=== PATIENT | male | born 1965 | race Caucasian/White ===

== ENCOUNTER 2020-04-07 12:57 | Inpatient (IN) | payer BC ==
[~2020-04-07] VITALS: Ht 188 cm; Wt 111.0 kg
[2020-04-07] VITALS (9 sets, daily range): BP systolic 109–177; BP diastolic 62–102
[2020-04-07 13:37] LABS: BASO % 0.3 % (0.0-1.0); EOS # 0.1 10*3/uL (0.0-0.4); EOS % 1.3 % (1.0-4.0); HEMATOCRIT 43.2 % (42.0-52.0); LYMPH # 1.6 10*3/uL (1.3-4.4); LYMPH % 25.7 % (27.0-41.0); MEAN CELL VOLUME 79.6 fl (80.0-94.0); MEAN CORPUSCULAR HGB 24.3 pg (27.0-31.0); MEAN CORPUSCULAR HGB CONC 30.6 g/dl (33.0-37.0); MEAN PLATELET VOLUME 8.5 fl (9.6-12.3); MONO # 0.6 10*3/uL (0.1-1.0); MONO % 9.9 % (3.0-9.0); NEUT # 3.9 10*3/uL (2.3-7.9); NEUT % 62.5 % (47.0-73.0); PLATELET COUNT AUTOMATED 267 10*3/uL (130-400); RED BLOOD COUNT 5.43 10*6/uL (4.50-5.90); WHITE BLOOD COUNT 6.3 10*3/uL (4.8-10.8)
[2020-04-07 13:51] LABS: ACETAMINOPHEN (TYLENOL) < 5.0 ug/ml (10-30); ALBUMIN 3.5 gm/dl (3.1-4.5); ALKALINE PHOSPHATASE 89 U/L (45-117); BUN 11 mg/dl (7-24); CHLORIDE 101 mmol/L (98-107); CREATININE 1.18 mg/dL (0.70-1.30); SGOT/AST 50 IU/L (3-35); SGPT/ALT 41 U/L (12-78); SODIUM 135 mmol/L (136-145); TOTAL PROTEIN 7.9 gm/dL (6.4-8.2); TROPONIN I < 0.015 ng/ml (<0.045)
[2020-04-07 14:30] LABS: BILIRUBIN Negative (Negative); BLOOD Negative (Negative); CLARITY Clear (Clear); COLOR Yellow (Yellow); GLUCOSE Negative (Negative); KETONE Negative (Negative); LEUKO ESTERASE Negative (Negative); NITRITE Negative (Negative); PH 5.5 (4.5-8.0); UROBILINOGEN 0.2 E.U./dl (0.0-1.0)
[2020-04-07 14:36] LABS: BACTERIA TRACE; EPITHELIAL CELLS 0-2; RBC 0-2 rbc/hpf (0-2); WBC 0-2 wbc/hpf (0-5)
[2020-04-07 14:38] LABS: URINE AMPHETAMINES < 1000 (1000ng/ml); URINE BARBITURATES < 200 (200ng/ml); URINE BENZODIAZEPINES < 200 (200ng/ml); URINE CANNABINOIDS (THC) < 50 (50ng/ml); URINE COCAINE < 300 (300ng/ml); URINE METHADONE < 300 (300ng/ml); URINE OPIATES < 300 (300ng/ml); URINE PHENCYCLIDINE < 25 (25ng/ml)
[2020-04-07] MEDS ORDERED: LIPITOR40 MG PO (14:38)
[2020-04-07] MEDS ORDERED: REMERON30 M1 PO (14:38)
[2020-04-07] MEDS ORDERED: METOPROLOL SUCC25 M2 PO (14:39)
[2020-04-07] MEDS ORDERED: HYDROCHLOROTHIA25 M1 PO (14:40)
[2020-04-07] MEDS ORDERED: LOSARTAN POTAS100 MG PO (14:41)
[2020-04-07] MEDS ORDERED: PROTONIX TR40 M1 PO (14:41)
--- NOTE | 2020-04-07 14:47 | NUR ---
PATIENT MEETS [facility]. [place] STAFF WILL FOLLOW UP WITH PATIENT CONCERNING HIS AFTERCARE PLAN. JOSE TAPIA B.A. CLOTH DESIGNER
--- NOTE | 2020-04-07 16:25 | NUR ---
JOSE IS IN PATIENT ROOM AT THIS TIME.
--- NOTE | 2020-04-07 16:37 | NUR ---
PATIENT RESTING AT THIS TIME. NO COMPLAINTS.
--- NOTE | 2020-04-07 16:39 | NUR ---
[place] STAFF IN TO SEE PATIENT. PATIENT WANTS TO FOLLOW UP WITH [facility] FOR HIS AFTERCARE PLAN. JOSE TAPIA B.A. VACUUM CLEANER OPERATOR
--- NOTE | 2020-04-07 17:00 | NUR ---
PATIENT AMBULATORY TO THE BATHROOM WITH NO DIFFICULTIES.
[2020-04-07] MEDS ORDERED: HYDR25T PO (18:39)
--- NOTE | 2020-04-07 18:39 | NUR ---
PATIENT STATES THAT HE IS STILL HUNGRY. PROVIDED A BOXED LUNCH.
--- NOTE | 2020-04-07 19:40 | NUR ---
PATIENT REQUESTING SOMETHING "FOR HIS NERVES". STATES THAT HE IS FEELING VERY "ON EDGE". PATIENT WILL BE MEDICATED WITH PRN ATIVAN. WILL CONTINUE TO MONITOR PT.
--- NOTE | 2020-04-07 20:00 | NUR ---
PATIENT STATES THAT HE IS FEELING MUCH BETTER AT THIS TIME. WILL CONTINUE TO MONITOR PT. CALL LIGHT IN REACH. PWD. RESP EASY AND NON LABORED.
--- NOTE | 2020-04-07 20:19 | NUR ---
PATIENT AMBULATORY TO THE BATHROOM WITH NO DIFFICULTIES.
--- NOTE | 2020-04-07 21:00 | NUR ---
PATIENT RESTING AT THIS TIME WITH EYES CLOSED. EASILY AROUSABLE. RESP EASY AND NON LABORED. NO COMPLAINTS AT THIS TIME.
--- NOTE | 2020-04-07 21:19 | NUR ---
PATIENT PROVIDED AN IMPATIENT BED DUE TO BEING AN ED HOLD.
--- NOTE | 2020-04-07 22:00 | NUR ---
PT REQUESTING ATIVAN TO HELP SLEEP AT THIS TIME. PT INFORMED THAT NEXT SCHEDULED DOSE IS AT 0000. WILL CONTINUE TO MONITOR.
--- NOTE | 2020-04-08 00:10 | NUR ---
ROBAXIN AND TRAZADONE BECOMING EFFECTIVE FOR MUSCLE CRAMPS AND INSOMNIA.
--- NOTE | 2020-04-08 00:15 | NUR ---
PT GIVEN ATIVAN AT THIS TIME. PT STATES HE IS HAVING A HARD TIME SLEEPING AT THIS TIME. WILL CONTINUE TO MONITOR.
--- NOTE | 2020-04-08 03:00 | NUR ---
PT C/O INABILITY TO SLEEP AT THIS TIME. STATES HE FEELS LIKE HE IS HAVING MUSCLE COTRACTIONS. NURSE [employer] SERVICE SALES REPRESENTATIVE CONTACTED AND TRAZADONE 50 MG AT THIS TIME. WILL CONTINUE TO MONITOR.
--- NOTE | 2020-04-08 04:00 | NUR ---
PT REQUESTING MORE MEDICATION TO HELP HIM CALM. ATIVAN BEING GIVEN AT THIS TIME.
[2020-04-08 04:51] VITALS: BP 182/113
--- NOTE | 2020-04-08 04:56 | NUR ---
DR BLOCK CONTACTED AT THIS TIME FOR PT C/O RESTLESSNESS. ORDERS FOR PT TO BE GIVEN 1 MG IV ATIVAN AT THIS TIME. WILL CONTINUE TO MONITOR.
[2020-04-08 07:41] VITALS: BP 165/83
--- NOTE | 2020-04-08 07:42 | NUR ---
PATIENT RESTING IN BED. NO S/S OF DISTRESS. VSS.
--- NOTE | 2020-04-08 11:13 | NUR ---
[facility] STAFF SENT PATIENT'S ASSESSMENT TO [facility]. [facility] STAFF WILL FOLLOW UP WITH PATIENT CONCERNING HIS AFTERCARE PLAN. JOSE TAPIA B.A. TRANSACTIONAL ATTORNEY
--- NOTE | 2020-04-08 12:00 | NUR ---
Pt arrived to floor from being adm in ER and ER hold. Assessment completed. See interventions. Home meds with pt taken and sent to pharmacy.
--- NOTE | 2020-04-08 14:23 | NUR ---
Pt had question regarding getting paperwork filled out for paid leave from work. I called [employer] and message was left for them regarding.
--- NOTE | 2020-04-08 15:22 | NUR ---
[place] STAFF IN TO SEE PATIENT. PATIENT IS WANTING OUTPATIENT TREATMENT AT [facility]. PATIENT HAS AN APPOINTMENT WITH THEM ON SATURDAY, March AT NOON. PATIENT REPORTS THAT HE TRANSPORTATION HOME POST DISCHARGE. [place] STAFF PROVIDED PATIENT WITH LETTER STATING THAT HE WAS IN [facility] THAT HE REQUESTED. PATIENT AGREES AND UNDERSTANDS HIS AFTERCARE PLAN. JOSE TAPIA B.A. FRAME OPERATOR
--- NOTE | 2020-04-08 15:49 | NUR ---
Notified by park warden that ekg monitor called her to notify the floor that pt is still off monitor. I had not received a call to say pt was off monitor.
--- NOTE | 2020-04-08 15:55 | NUR ---
Medicated with robaxin and vistaril per prn order for complaints of muscle aches and anxiety.
[2020-04-08 16:00] VITALS: BP 143/91
--- NOTE | 2020-04-08 16:45 | NUR ---
States that medication given earlier was effective.
--- NOTE | 2020-04-08 18:09 | NUR ---
Nicoderm patch applied to left shoulder per pt request and prn order. Pt states he smokes 1 ppd.
[2020-04-08 20:00] VITALS: BP 114/78
--- NOTE | 2020-04-08 20:06 | NUR ---
IV ATIVAN GIVEN PER ORDER FOR D/T TREMORS AND PO ATIVAN NOT DUE YET. MOTRIN GIVEN PER ORDER FOR BACK PAIN RATED "5".
--- NOTE | 2020-04-08 21:00 | NUR ---
MOTRIN AND IV ATIVAN EFFECTIVE FOR PAIN AND ANXIETY.
--- NOTE | 2020-04-08 23:16 | NUR ---
ROBAXIN GIVEN PER ORDER FOR MUSCLE/BACK PAIN SEE MAR.
--- NOTE | 2020-04-08 23:24 | NUR ---
TRAZADONE GIVEN PER ORDER FOR INSOMNIA. SEE MAR.
[2020-04-09] VITALS: BP 155/99
--- NOTE | 2020-04-09 01:48 | NUR ---
VISTARIL GIVEN PER ORDER FOR FOR ANXIETY. SEE MAR.
--- NOTE | 2020-04-09 02:40 | NUR ---
CALLED DR. BLOCK AND NOTIFIED HIM OF PATIENT UNABLE TO SLEEP AND HAVING TREMORS AND ALL MEDICATIONS HAVE BEEN GIVEN FOR THIS WITH NO RESULTS. ORDER RECEIVED TO GO AHEAD AND GIVEN IV ATIVAN AGAIN.
--- NOTE | 2020-04-09 02:59 | NUR ---
ATIVAN IV GIVEN PER ORDER FOR TREMORS AND ANXIETY. SEE MAR.
--- NOTE | 2020-04-09 03:32 | NUR ---
PATIENT STILL RESTLESS WITH LEGS MOVING AROUND IN BED. PATIENT TRYING TO REST.
--- NOTE | 2020-04-09 05:00 | NUR ---
SLEEPING WELL. RESP. EASY AND REG.
[2020-04-09 08:00] VITALS: BP 145/86
--- NOTE | 2020-04-09 10:16 | NUR ---
Dr. Obregon rounded and states that geography head to be dc and pt may shower.
[2020-04-09 12:00] VITALS: BP 90/55
--- NOTE | 2020-04-09 12:48 | NUR ---
Medicated with ativan iv per prn order for complaints of increased anxiety and moderate tremors.
--- NOTE | 2020-04-09 13:15 | NUR ---
Ativan was effective.
[2020-04-09 16:00] VITALS: BP 115/77
--- NOTE | 2020-04-09 16:54 | NUR ---
C/o anxiety moderate tremors noted. Medicated with ativan iv per prn order.
--- NOTE | 2020-04-09 17:30 | NUR ---
States that ativan was effective.
--- NOTE | 2020-04-09 19:45 | NUR ---
TOOK OVER CARE OF PT. PT RESTING IN BED. RESPIRATIONS EASY AND UNLABORED ON ROOM AIR. SAFETY MEASURES IN PLACE. CALL LIGHT IN REACH.
[2020-04-09 20:07] VITALS: BP 101/81
--- NOTE | 2020-04-09 20:54 | NUR ---
PT GIVEN ATIVAN 1 MG VIA IVP AND PO ROBAXIN FOR C/O INCREASED ANXIETY AND MUSCLE ACHES. WILL MONITOR FOR EFFECTIVENESS. ALL OTHER HS MEDS GIVEN AT THIS TIME. CALL LIGHT IN REACH.
--- NOTE | 2020-04-09 21:54 | NUR ---
ATIVAN AND ROBAXIN EFFECTIVE.
--- NOTE | 2020-04-09 22:08 | NUR ---
PT GIVEN TRAZODONE FOR C/O INSOMNIA AND RESTLESSNESS. WILL MONITOR FOR EFFECTIVENESS. CALL LIGHT IN REACH.
--- NOTE | 2020-04-09 23:08 | NUR ---
PT STATES THAT TRAZODONE IS NOT EFFECTIVE.
--- NOTE | 2020-04-09 23:27 | NUR ---
PT GIVEN ADDITIONAL DOSE OF TRAZODONE FOR INSOMNIA ND RESTLESSNESS, PER EMAR ORDERS. PT ALSO GIVEN VISTARIL FOR ANXIETY. WILL MONITOR FOR EFFECTIVENESS. CALL LIGHT IN REACH.
[2020-04-10] VITALS: BP 120/74
--- NOTE | 2020-04-10 00:26 | NUR ---
PT C/O THAT TRAZODONE AND VISTARIL ARE NOT EFFECTIVE AND THAT HE CANNOT SLEEP. DR CUELLAR NOTIFIED AND GIVES OKAY TO GIVE DOSAGE OF IV ATIVAN 1 MG AT THIS TIME. WILL MONITOR FOR EFFECTIVENESS. CALL LIGHT IN REACH.
--- NOTE | 2020-04-10 02:16 | NUR ---
PT C/O THAT HE IS NOT SLEEPING AND ALSO STATES THAT HE "KNOWS WHAT HIS INSURANCE IS PAYING FOR HIS BED HERE". PT STATES THAT HE WOULD LIKE TO TALK TO A DR AND THAT HE WOULD LIKE MORE MEDICATION TO CONTROL HIS WITHDRAWAL SYMPTOMS AND INSOMNIA. DR CUELLAR NOTIFIED OF THIS AND STATES THAT IT IS OKAY TO GIVE PT AN ADDITIONAL DOSAGE OF 1 MG ATIVAN VIA IVP. PHYSICIAN STATES THAT HE WILL UP TO FLOOR TO TALK WITH PT.
--- NOTE | 2020-04-10 03:16 | NUR ---
ATIVAN IS EFFECTIVE. PT SLEEPING AT THIS TIME. RESPIRATIONS EASY AND UNLABORED ON ROOM AIR. CALL LIGHT IN REACH.
--- NOTE | 2020-04-10 04:58 | NUR ---
PT CALLS OUT TO DESK AND ASKS WHICH MEDS ARE DUE FOR HIS WITHDRAWAL SYMPTOMS. PT C/O ANXIETY AND LEG PAIN. VISTARIL AND ROBAXIN GIVEN. WILL MONITOR FOR EFFECTIVENESS.
--- NOTE | 2020-04-10 05:58 | NUR ---
ROBAXIN AND VISTARIL EFFECTIVE AT THIS TIME.
[2020-04-10 08:00] VITALS: BP 134/71
[2020-04-10] MEDS ORDERED: ATARAX,VISTARIL50 MG PO (10:08)
--- NOTE | 2020-04-10 11:00 | NUR ---
Discharge instructions reviewed with patient/family. Patient receptive and verbalizes understanding. Follow-up care arranged. Written instructions given to patient/family. IV WAS REMOVED AND MEDICATIONS WERE RETURNED TO PT FROM PHARMACY. LENKA ALBERTS
== END 2020-04-10 11:10 | disposition home or self-care (01) | DRG 897 ==
LOC: ED 12:57 → EDHOLD 13:29 → 5E 04-08 11:43
PROVIDERS: Physician Assistant; ADMIT Family Medicine; ATTEND Family Medicine
DX: F10.230 Alcohol dependence with withdrawal, uncomplicated (principal); E87.1 Hypo-osmolality and hyponatremia; E44.1 Mild protein-calorie malnutrition; I10 Essential (primary) hypertension; F17.210 Nicotine dependence, cigarettes, uncomplicated; E78.5 Hyperlipidemia, unspecified; K27.9 Peptic ulcer, site unspecified, unspecified as acute or chronic, without hemorrhage or perforation; R74.01 Elevation of levels of liver transaminase levels; Z82.49 Family history of ischemic heart disease and other diseases of the circulatory system; Z71.6 Tobacco abuse counseling; Z68.31 Body mass index [BMI] 31.0-31.9, adult